=== PATIENT | female | born 1940 | race Caucasian/White ===

== ENCOUNTER → 2016-12-08 | Day surgery (SDC) | payer MEDICARE, OTHER ==
[~2016-12-08] VITALS: Ht 162.6 cm; Wt 66.2 kg
[~2016-12-08] MED LIST: *ENALAPRILAT 1.25 MG/ML VIAL PERIprocedural Use ONLY ONE; ACETAMINOPHEN 500 MG CPLT PO PRN; AMLO5TAB2 PO; ATROPINE SULFATE 1% OPHT SOLN 2 ML BTL ONE; BALANCED SALT SOLN OPHT IRRIG 15 ML BTL ONE; CLON0.1T PO; DEXAMETHASONE SOD PHOS 4 MG/ML VIAL ONE; DIPH2.5T14 PO; DO NOT ADM ANY ANTICOAGULANT DRUGS XX PRN; EPINEPHrine HCL (1:1000) 1 MG/ML VIAL ONE; FAMOTIDINE 20 MG/2 ML VIAL ONE; HYDROmorphone HCL PF 1 MG/ML VIAL ONE; INSULIN HUMAN REGULAR 1,000 UNITS/10 ML VIAL SQ PRN; LACTATED RINGER'S 1000 ML IV SCH; LEVO50TA4 PO; MELO-1 PO; METOPROLOL TARTRATE 25 MG TAB PO PRN; MIDAZOLAM HCL 2 MG/2 ML VIAL ONE; OCUVTAB PO; ONDANSETRON HCL 4 MG/2 ML VIAL IM PRN; ONDANSETRON HCL 4 MG/2 ML VIAL IV PUSH ONE; OXYC1TAB36 PO; PROPOFOL 200 MG/20 ML AMP IV ONE; SODIUM CHLORID 0.9% 500 ML IV SCH; STERILE WATER FOR INJ 20 ML VIAL ONE; TOBRAMYCIN/DEXAMETHASONE OPTH OINT 3.5 GM TUBE ONE; TRAZ150T75 PO; TRIAMCINOLONE ACETONIDE/PF 40 MG/ML OPTH VIAL ONE; VITA10007 PO; ceFAZolin INJ 1,000 MG VIAL ONE; ePHEDrine/NS 25 MG/5 ML SYR IV ONE
[2016-12-08 08:46] VITALS: BP 177/86; PULSE 66; RESP 18; TEMP 97.9; O2SAT 94
[2016-12-08] MEDS: PHENYLEPHRINE HCL 2.5% OPTH SOLN 2 ML BTL RIGHT EYE SCH ×2 (09:04→09:20)
[2016-12-08] MEDS: CYCLOPENTOLATE HCL 1% OPHT SOLN 2 ML BTL RIGHT EYE SCH ×2 (09:04→09:20)
[2016-12-08] MEDS: TROPICAMIDE 1% OPTH SOLN 2 ML BTL RIGHT EYE SCH ×2 (09:04→09:20)
[2016-12-08] MEDS: ATROPINE SULFATE 1% OPHT SOLN 5 ML BTL RIGHT EYE SCH ×2 (09:04→09:20)
[2016-12-08 09:10] LABS: AUTOMATED NEUTROPHIL # 5.6 TH/MM3 (1.8-7.7); BASOPHIL # 0.1 TH/MM3 (0-0.2); BASOPHIL % 0.9 % (0.0-2.0); EOSINOPHIL # 0.3 TH/MM3 (0-0.4); EOSINOPHIL % 3.4 % (0.0-4.0); HEMATOCRIT 41.9 % (35.0-46.0); HEMO FLAGS DIFF FINAL; LYMPHOCYTE # 1.4 TH/MM3 (1.0-4.8); MEAN CELL VOLUME 90.3 FL (80.0-100.0); MEAN CORPUSCULAR HEMOGLOBIN 30.9 PG (27.0-34.0); MEAN CORPUSCULAR HGB CONC 34.2 % (32.0-36.0); MONO % 9.7 % (0.0-8.0); PLATELET COUNT 290 TH/MM3 (150-450); RED BLOOD COUNT 4.64 MIL/MM3 (4.00-5.30); RED CELL DISTRIBUTION WIDTH 13.4 % (11.6-17.2); WHITE BLOOD COUNT 8.1 TH/MM3 (4.0-11.0)
[2016-12-08] MEDS: oxyCODONE/ACETAMINOPHEN 5 MG/325 MG TAB PO PRN (12:00)
[2016-12-08 12:34] VITALS: BP 164/74; PULSE 67; RESP 18; TEMP 98.5; O2SAT 95
--- NOTE | 2016-12-08 23:37 | EKG ---
Date Performed: 12/08/2016 Time Performed: 08:29:23 PTAGE: 76 years EKG: Sinus rhythm NORMAL ECG NO PREVIOUS TRACING DOCTOR: Nilay Espinal Interpretating Date/Time 12/08/2016 23:35:54
--- NOTE | 2016-12-09 09:50 | MP ---
cc: DARIEL COOL M.D. DATE OF SURGERY: 12/08/2016 PREOPERATIVE DIAGNOSIS Epiretinal membrane with lamellar hole, right eye. POSTOPERATIVE DIAGNOSIS Epiretinal membrane with lamellar hole, right eye. PROCEDURE Trans pars plana vitrectomy with membranectomy and gas-fluid exchange, right eye. SURGEON Dr. Dariel Cool ANESTHESIA General laryngeal mask anesthesia. INDICATION Ms. Krishnamurthy is a 76-year-old woman with a history of decreased central vision in her right eye who wished to proceed electively with a vitrectomy and membrane peel due to the presence of an epiretinal membrane and lamellar hole causing her decreased vision. The risks and benefits of surgery were discussed with the patient and informed consent was obtained. No guarantee were made as to visual outcome. DETAILS OF PROCEDURE She was brought to [facility] Operating Room-1 and placed on the operating table. Appropriate anesthesia monitoring devices were applied and she was placed under general anesthesia using laryngeal mask. The right eye was identified as the operative site and then prepped and draped in the usual and sterile fashion. A lid speculum was placed. The microscope was brought around and adjusted. At this point an appropriate timeout was called with the surgical team agreeing to the surgical site and proposed procedure. Using the Hira 23-gauge vitrectomy system the trocar cannulas were placed 3.5 mm posterior to the limbus after first displacing the conjunctiva. The first one was placed at approximately the 9 o'clock position and verified to be in the posterior chamber. An infusion cannula was affixed to it and it was turned on. Two additional trocar cannulas were placed in similar fashion at 10 and 2 o'clock. The eye was entered with the endoilluminator light pipe and vitrectomy cutter after first injecting a small amount of Kenalog to help visualize. A vitrectomy was then performed after which a flat contact lens was placed on the cornea for a higher magnified view and the membrane was removed over the macula with the George membrane scraper and the soft-tip linear extrusion needle. The plugs were placed back in the eye and the fundus was inspected with the indirect ophthalmoscope aided by scleral depression. No retinal breaks were found. An air-fluid exchange was then performed and then the air was exchanged for a 24% mixture of SF6 gas which was slowly insufflated through the eye after, after which the plugs were placed back in the cannulas and they were removed one by one with tamponade of the site with a cotton swab and diathermy to the overlying conjunctival wound leaving the eye with good pressure and no visible air leaks. Atropine drops were placed on the cornea followed by subconjunctival actions of Ancef 125 mg in 0.5 cc, and Decadron 2 mg in 0.5 cc. The lid speculum was removed. TobraDex ointment was placed on the cornea and the eye was patched and shielded. The patient had the laryngeal mask removed in the room and was returned to Recovery in good condition laying on her left side. When awake and alert she will be asked to assume a face down position. MD VIDYA Perkins/BT /10:49 AM /9:35 AM
== END | disposition home or self-care (01) ==
LOC: HSDC 07:58
PROVIDERS: ATTEND Ophthalmology
DX: H35.341 Macular cyst, hole, or pseudohole, right eye (principal); H35.371 Puckering of macula, right eye; I10 Essential (primary) hypertension
CPT/HCPCS: 00145; 67042; 85025; 93005; J0171; J0690; J1100; J1170; J2250; J2405; J3010; J3300; J7120